=== PATIENT | female | born 1990 | race American Indian/Alaskan Native ===

== ENCOUNTER 2019-12-12 16:13 | Emergency (ER) | payer MEDICAID ==
[2019-12-12] MEDS: Sodium Chloride 0.9% 1,000 ML IV SCH (16:55)
--- NOTE | 2019-12-12 17:04 | EDM.PDOC ---
ED HPI GENERAL MEDICAL PROBLEM - General Chief Complaint: Syncope Stated Complaint: MEDICAL VIA NORTH Time Seen by Provider: 12/12/19 16:20 Source of Information: Reports: Patient History Limitations: Reports: No Limitations - History of Present Illness INITIAL COMMENTS - FREE TEXT/NARRATIVE: 29-year-old female who was seen at the clinic earlier today with some vague generalized abdominal pain, mostly lower abdominal pain but no nausea vomiting diarrhea or other symptoms was diagnosed with a UTI and given a shot of Rocephin. She will start oral Bactrim tomorrow. She went into the bank to withdraw some money, while in the bank she started getting very lightheaded and dizzy, went up to the social media job [employer] window and said I think him going to faint in the next and she remembers she was on the floor. She did not get hurt. Ambulance was called and she was transported to the emergency room. Completely stable in route, normal glucose. Still is complaining of some mild lower abdominal discomfort, no urinary symptoms. Onset: Sudden Associated Symptoms: Reports: Confusion (A period of confusion when she came around after regaining consciousness), Diaphoresis (Became very diaphoretic), Malaise, Other (Now she just feels very tired). 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 Denies: Fever, Chills HEENT: Reports: No Symptoms Respiratory: Denies: Shortness of Breath Cardiovascular: Denies: Chest Pain GI/Abdominal: Reports: Abdominal Pain. Denies: Constipation, Diarrhea, Nausea, Vomiting : Reports: No Symptoms, Other (Diagnosed with a UTI in the clinic) Skin: Reports: Diaphoresis (Resolved) - Physical Exam Exam: See Below Exam Limited By: No Limitations General Appearance: Alert, No Apparent Distress Eye Exam: Bilateral Eye: Normal Inspection Head Exam: Atraumatic Neck: Supple, Non-Tender Respiratory/Chest: Lungs Clear Cardiovascular: Regular Rate, Rhythm GI/Abdominal: Soft, Tender (Some mild diffuse tenderness to palpation but no focal rebound or guarding) Neuro Exam (Abbreviated): Alert, Oriented, No Motor/Sensory Deficits Psychiatric: Normal Affect, Normal Mood Skin Exam: Warm, Dry Course - Vital Signs Last Recorded V/S: Last Vital Signs Temp 97.3 F 12/12/19 16:13 Pulse 102 H 12/12/19 16:40 Resp 16 12/12/19 16:13 BP 103/69 12/12/19 16:40 Pulse Ox 98 12/12/19 16:13 - Orders/Labs/Meds Meds: Medications Discontinued Medications Generic Name Dose Route Start Last Admin Trade Name Luisq PRN Reason Stop Dose Admin Sodium Chloride 1,000 mls @ 1,000 mls/hr 12/12/19 16:45 12/12/19 16:55 Normal Saline IV 1,000 mls/hr ASDIRECTED ELIU Administration - Re-Assessments/Exams Free Text/Narrative Re-Assessment/Exam: 12/12/19 17:04 Reviewed the clinic records, she did have a very high specific gravity of her urine and some WBCs and a few bacteria. Patient will be hydrated with 1 L of normal saline. 12/12/19 17:56 After the fluid hydration, patient was asymptomatic and felt better. She was discharged and encouraged to continue her antibiotic as prescribed, concentrate on staying hydrated and increase diet and activity as tolerated. She can return for recheck if not improving satisfactorily. Departure - Departure Time of Disposition: 18:18 Disposition: Home, Self-Care 01 Clinical Impression: Syncope, vasovagal, Dehydration - Discharge Information Instructions: Syncope, [id number] Referrals: PCP,None [Primary Care Provider] - Forms: ED Department Discharge Care Plan Goals: Concentrate on staying hydrated with water, increase diet and activity as tolerated and start antibiotic tomorrow as prescribed. Return anytime if worsening or concerns. Sepsis Event Note - Evaluation Sepsis Screening Result: No Definite Risk - Focused Exam Vital Signs: Vital Signs Temp Pulse Resp BP Pulse Ox 12/12/19 16:40 102 H 103/69 12/12/19 16:13 97.3 F 90 16 92/54 L 98 Date Exam was Performed: 12/12/19 Time Exam was Performed: 18:51
== END 2019-12-12 18:18 | disposition home or self-care (01) ==
LOC: JP.ED 16:13
DX: E86.0 Dehydration (principal); F17.210 Nicotine dependence, cigarettes, uncomplicated
CPT/HCPCS: 96360; 99284; J7030

== ENCOUNTER 2020-01-16 06:28 | Emergency (ER) | payer MEDICAID ==
[2020-01-16] MEDS ORDERED: Ketorolac 60 MG/2 ML SDV IM ONE (06:50)
--- NOTE | 2020-01-16 07:46 | EDM.PDOC ---
ED HPI GENERAL MEDICAL PROBLEM - General Chief Complaint: Lower Extremity Injury/Pain Stated Complaint: MEDICAL VIA NORTH Time Seen by Provider: 01/16/20 07:36 Source of Information: Reports: Patient, Old Records (Dankoneal Mashashereen), RN Notes Reviewed History Limitations: Reports: No Limitations - History of Present Illness INITIAL COMMENTS - FREE TEXT/NARRATIVE: Miguel Ángel is a 29 year old female that presents to the ED via ambulance for left lower back pain with radiating pain down the left leg. She works at [employer] thursday thru and she does endorse muscle soreness during her shift last (4 days ago). On thursday am, Miguel Ángel awoke with the pain in her left lower back and radiating leg pain. this is the first time she's ever had the radiating pain down her leg- has a history of chronic back pain in which she received an epidural steriod injection between L5-S1 in 2018. At that time, she states she was unable to move her back, unable to sit down or lift anything. She has seen a chiropractor in the past without relief. Dr Larson is her PCP and she had not seen her for this back pain. Miguel Ángel states that she has had x- rays on her lumbar spine but no MRIs in the past. She has tried ibuprofen, ice, and heat over the weekend without any relief. No loss of bowel or bladder function or saddle numbness. Onset: Gradual Onset Date: 01/13/20 Duration: Day(s): (3-4) Location: Reports: Back Quality: Reports: Sharp (with certain movements), Other (numbness ) Severity: Moderate Improves with: Reports: Immobilization, Rest Worsens with: Reports: Movement Associated Symptoms: Reports: No Other Symptoms Treatments DOUGH CUTTER: Reports: Cold Therapy, Heat Therapy, NSAIDS left leg Pain Score (Numeric/FACES): 6 - Related Data Allergies Allergy/AdvReac Type Severity Reaction Status Date / Time No Known Allergies Allergy Verified 01/16/20 06:30 Home Meds: Home Meds Baclofen 10 mg PO TID PRN 7 Days #21 tablet 01/16/20 [Rx] Past Medical History HEENT History: Reports: Impaired Vision PSYCHIATRIC CNS History: Reports: Musculoskeletal History: Reports: Other (See Below) Other Musculoskeletal History: Left sciatic nerve pain, chronic Social & Family History - Tobacco Use Smoking Status *Q: Former Smoker Years of Tobacco use: 10 Packs/Tins Daily: 0.2 Used Tobacco, but Quit: Yes Month/Year Tobacco Last Used: january 2020 - Caffeine Use Caffeine Use: Reports: None - Recreational Drug Use Recreational Drug Use: No Review of Systems - Review of Systems Review Of Systems: See Below Constitutional: Reports: No Symptoms Eyes: Reports: No Symptoms Ears: Reports: No Symptoms, Previous Injury Nose: Reports: No Symptoms Mouth/Throat: Reports: No Symptoms Respiratory: Reports: No Symptoms Cardiovascular: Reports: No Symptoms GI/Abdominal: Reports: No Symptoms Genitourinary: Reports: No Symptoms Musculoskeletal: Reports: Back Pain (left lower), Leg Pain (left leg), Muscle Pain, Muscle Stiffness Skin: Reports: No Symptoms Neurological: Reports: No Symptoms Psychiatric: Reports: No Symptoms ED EXAM, GENERAL - Physical Exam Exam: See Below Exam Limited By: No Limitations General Appearance: Alert, Mild Distress, Obese Respiratory/Chest: No Respiratory Distress, Lungs Clear, Normal Breath Sounds, Chest Non-Tender Cardiovascular: Regular Rate, Rhythm, No Edema Peripheral Pulses: 2+: Dorsalis Pedis (L), Dorsalis Pedis (R) (Female) Exam: Deferred Rectal (Female) Exam: Deferred Back Exam: Normal Inspection, Decreased Range of Motion (unable to fully assess- ), Muscle Spasm (elicted with movement), Paraspinal Tenderness (left lumbar side), Vertebral Tenderness (left lower side). No: CVA Tenderness (R), CVA Tenderness (L) Extremities: Normal Inspection, No Pedal Edema, Normal Capillary Refill, Leg Pain (pain with palpation, state numbness along lateral leg to toes), Limited Range of Motion (to left leg- difficult to fully assess- possible positive straight leg lift test), Other (equal bilateral strength of dorsiflexion of great toe against resistance. ). No: Pedal Edema, Slow Capillary Refill, Joint Swelling, Redness Neurological: Alert, Oriented, Abnormal Gait (unable to bear full weight on left leg- toe touches. ), Abnormal Reflexes (DTR on left difficult to asses due to muscle tightness. ) Psychiatric: Normal Affect, Normal Mood Skin Exam: Warm, Dry, Intact Course - Vital Signs Last Recorded V/S: Last Vital Signs Temp 98.3 F 01/16/20 06:47 Pulse 83 01/16/20 06:47 Resp 17 01/16/20 06:47 BP 119/87 01/16/20 06:47 Pulse Ox 98 01/16/20 06:47 - Orders/Labs/Meds Labs: Laboratory Tests 01/16/20 Range/Units 08:27 Urine HCG, Qual Negative Meds: Medications Discontinued Medications Generic Name Dose Route Start Last Admin Trade Name Freq PRN Reason Stop Dose Admin Baclofen 10 mg 01/16/20 08:03 01/16/20 08:11 Lioresal PO 01/16/20 08:04 10 mg ONETIME ONE Administration Ketorolac Tromethamine 60 mg 01/16/20 06:50 01/16/20 07:12 Toradol IM 01/16/20 06:51 60 mg ONETIME ONE Administration Oxycodone/Acetaminophen 1 tab 01/16/20 08:03 01/16/20 08:13 Percocet 325-5 Mg PO 1 tab ONETIME PRN Administration Pain - Radiology Interpretation Free Text/Narrative:: MRI results reviewed with Patient. - Re-Assessments/Exams Free Text/Narrative Re-Assessment/Exam: 01/16/20 08:18 miguel ángel does state that she had difficulty with her lower back during her four years ago. Again she reiterates that she has not had any previous radiculopathy to her lower extremities. Departure - Departure Time of Disposition: 12:47 Disposition: Home, Self-Care 01 Condition: Fair Clinical Impression: Lumbar back pain with radiculopathy affecting left lower extremity, Lumbar disc herniation with radiculopathy - Discharge Information *PRESCRIPTION DRUG MONITORING PROGRAM REVIEWED*: No *COPY OF PRESCRIPTION DRUG MONITORING REPORT IN PATIENT THIEN: No Prescriptions: Baclofen 10 mg PO TID PRN 7 Days #21 tablet PRN Reason: muscle spasms Instructions: Herniated Disk, [id number] Referrals: PCP,None [Primary Care Provider] - Forms: ED Department Discharge, ED Return to Work/School Form Additional Instructions: Take 600 mg of Ibuprofen four times daily with food for the next week. Use the norco for break through pain and for sleep at night. You may also use Baclofen for muscle relaxation up to three times daily. An order for an epidural injection has been placed- they will call you to set up that appointment. It needs to go through prior auth for your insurance. [facility] should call you for an follow-up appointment with Elodia Larson early next week. Call or return to ED with any worsening of symptoms, loss of bowel or bladder function, or other concerns. Sepsis Event Note (ED) - Evaluation Sepsis Screening Result: No Definite Risk - Focused Exam Vital Signs: Vital Signs Temp Pulse Resp BP Pulse Ox 01/16/20 06:47 98.3 F 83 17 119/87 98 01/16/20 06:44 98.3 F 83 17 119/87 98 - Assessment/Plan Plan: Discharge home with baclofen 10 mg (#20) and [place] 5/325 (#10). Order for epidural steriod injection and to follow up with PCP next week. Pt agreeable to plan.
[2020-01-16] MEDS ORDERED: Acetaminophen/oxyCODONE 325-5 MG Tab PO PRN (08:03)
[2020-01-16] MEDS ORDERED: Baclofen 10 MG Tab PO ONE (08:03)
--- NOTE | 2020-01-16 12:06 | MR ---
Lumbar Spine Comp wo Cont CLINICAL HISTORY: Back and left leg pain COMPARISON: None TECHNIQUE: Multiple pulse sequences were obtained through the lumbar spine in the axial and sagittal planes without the IV infusion of contrast material. All images were obtained on a 1.5 Antionette unit. FINDINGS: Sagittal images show the lumbar vertebral configuration and signal be normal throughout. The conus medullaris and spinal nerve roots have a normal signal and configuration. Axial images show normal disc contour at L1-2. There is mild concentric disc bulging at L2-3 with some mild facet hypertrophy. There is concentric disc bulging at L3-4 with facet hypertrophy. There is some encroachment on the left lateral recess. There is a large left paracentral disc protrusion at L4-5. This is seen with moderate facet hypertrophy. This causes severe central canal stenosis as well as significant encroachment on the left lateral recess and left neural foramina. There is concentric disc bulging at L5-S1 with a left posterior annular tear and some mild central disc protrusion. IMPRESSION: Left paracentral disc protrusion at L4-5 encroaching on the thecal sac left lateral recess and neural foramina. 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
== END 2020-01-16 13:25 | disposition home or self-care (01) ==
LOC: JP.ED 06:28
DX: M51.16 Intervertebral disc disorders with radiculopathy, lumbar region (principal); Z87.891 Personal history of nicotine dependence
CPT/HCPCS: 72148; 81025; 96372; 99284; A9270; J1885; 99283

== ENCOUNTER 2020-09-23 16:10 | Emergency (ER) | payer MEDICAID ==
[2020-09-23] MEDS ORDERED: Ondansetron 4 MG Tab.DIS PO ONE (16:22)
[2020-09-23] MEDS ORDERED: Acetaminophen 500 MG Tab PO ONE (16:32)
--- NOTE | 2020-09-23 16:35 | EDM.PDOC ---
ED HPI GENERAL MEDICAL PROBLEM - General Chief Complaint: Gastrointestinal Problem Stated Complaint: MED VIA [facility] Time Seen by Provider: 09/23/20 16:15 Source of Information: Reports: Patient, Old Records, RN History Limitations: Reports: No Limitations - History of Present Illness INITIAL COMMENTS - FREE TEXT/NARRATIVE: 30 yo female presents via EMS from [place] with LLQ abdominal pain and vomiting. Sx's began about 3 days ago. Was dx with about 2 weeks ago. No blood in her emesis. No fever. No diarrhea. Pain is improved with lying on her L side with her legs pulled up to her chest. Has not yet been seen for this problem. No hx of any abdominal surgeries. No dysuria. Is not aware of a FHx of diverticular dz. Onset: Gradual Onset Date: 09/20/20 Duration: Day(s): (3), Getting Worse Location: Reports: Abdomen (LLQ) Quality: Reports: Ache Severity: Moderate Improves with: Reports: Other (See HPI) Worsens with: Reports: Other (other positions) Context: Reports: Other (See HPI) Associated Symptoms: Reports: Nausea/Vomiting. 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: , 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 Musculoskeletal History: Reports: Other (See Below) Other Musculoskeletal History: Left sciatic nerve pain, chronic Psychiatric History: Reports: Anxiety, Depression, PTSD Endocrine/Metabolic History: Reports: Obesity/BMI 30+ - Infectious Disease History Infectious Disease History: Reports: Chicken Pox - Past Surgical History Head Surgeries/Procedures: Reports: None HEENT Surgical History: Reports: None Endocrine Surgical History: Reports: None Musculoskeletal Surgical History: Reports: None Dermatological Surgical History: Reports: None Social & Family History - Tobacco Use Tobacco Use Status *Q: Former Tobacco User Used Tobacco, but Quit: Yes Month/Year Tobacco Last Used: 06/2020 Second Hand Smoke Exposure: No - Caffeine Use Caffeine Use: Reports: None - Recreational Drug Use Recreational Drug Use: No ED ROS GENERAL - Review of Systems Review Of Systems: See Below Constitutional: Reports: No Symptoms HEENT: Reports: No Symptoms Respiratory: Reports: No Symptoms Cardiovascular: Reports: No Symptoms Endocrine: Reports: No Symptoms GI/Abdominal: Reports: Abdominal Pain, Nausea, Vomiting. Denies: Black Stool, Bloody Stool, Constipation, Diarrhea, Distension, Hematemesis : Reports: Other (early first trimester IUP) Musculoskeletal: Reports: No Symptoms Skin: Reports: No Symptoms Neurological: Reports: No Symptoms ED EXAM, GI/ABD - Physical Exam Exam: See Below Exam Limited By: No Limitations General Appearance: Alert, WD/WN, No Apparent Distress, Obese Eyes: Bilateral: Normal Appearance Ears: Normal External Exam, Normal Canal, Hearing Grossly Normal Nose: Normal Inspection, No Blood Throat/Mouth: Normal Inspection, Normal Lips, Normal Oropharynx, Normal Voice, No Airway Compromise Head: Atraumatic, Normocephalic Neck: Normal Inspection Respiratory/Chest: No Respiratory Distress, Lungs Clear, Normal Breath Sounds, No Accessory Muscle Use Cardiovascular: Regular Rate, Rhythm, No Edema GI/Abdominal Exam: Normal Bowel Sounds, Soft, No Distention, Tender (mild LLQ tenderness), Other (obese). No: Non-Tender, Distended Back Exam: Normal Inspection. No: CVA Tenderness (R), CVA Tenderness (L) Extremities: Normal Inspection, Normal Range of Motion, Non-Tender, No Pedal Edema Neurological: Alert, Oriented, CN II-XII Intact, Normal Cognition, No Motor/Sensory Deficits Psychiatric: Normal Affect, Normal Mood Skin Exam: Warm, Dry, Intact, Normal Color, No Rash Course - Vital Signs Last Recorded V/S: Last Vital Signs Temp 36.6 C 09/23/20 16:18 Pulse 75 09/23/20 16:18 Resp 16 09/23/20 16:18 BP 122/67 09/23/20 16:18 Pulse Ox 97 09/23/20 16:18 Orthostatic Blood Pressure [ 114/75 Standing] Orthostatic Blood Pressure [ 118/70 Sitting] Orthostatic Blood Pressure [ 127/73 Supine] - Orders/Labs/Meds Orders: Active Orders 24 hr Category Date Time Status Orthostatic Vital Signs [RC] ASDIRECTED Care 09/23/20 16:22 Active Labs: Laboratory Tests 09/23/20 09/23/20 09/23/20 Range/Units 16:44 16:44 17:17 WBC 14.1 H (4.5-11.0) K/uL RBC 4.73 (3.30-5.50) M/uL Hgb 13.7 (12.0-15.0) g/dL Hct 41.9 (36.0-48.0) % MCV 89 (80-98) fL MCH 29 (27-31) pg MCHC 33 (32-36) % Plt Count 434 H (150-400) K/uL C-Reactive Protein 2.13 H (0.0-0.3) mg/dL HCG, Quant 30214 H (0-6) mIU/mL Urine Color Yellow (YELLOW) Urine Appearance Cloudy A (CLEAR) Urine pH 7.0 (5.0-8.0) Ur Specific [place] 1.025 (1.008-1.030) Urine Protein Negative (NEGATIVE) mg/dL Urine Glucose (UA) Negative (NEGATIVE) mg/dL Urine Ketones 40 H (NEGATIVE) mg/dL Urine Occult Blood Trace-intact H (NEGATIVE) Urine Nitrite Negative (NEGATIVE) Urine Bilirubin Negative (NEGATIVE) Urine Urobilinogen 1.0 (0.2-1.0) EU/dL Ur Leukocyte Esterase Negative (NEGATIVE) Urine RBC 0-5 (0-5) Urine WBC 0-5 (0-5) Ur Epithelial Cells Many Amorphous Sediment Few Urine Bacteria Many Urine Mucus Few Meds: Medications Discontinued Medications Generic Name Dose Route Start Last Admin Trade Name Freq PRN Reason Stop Dose Admin Acetaminophen 1,000 mg 09/23/20 16:32 09/23/20 16:35 Acetaminophen 500 Mg Tab PO 09/23/20 16:33 1,000 mg ONETIME ONE Administration Ondansetron HCl 4 mg 09/23/20 16:22 09/23/20 16:33 Ondansetron 4 Mg Tab.Dis PO 09/23/20 16:23 4 mg ONETIME ONE Administration - Re-Assessments/Exams Free Text/Narrative Re-Assessment/Exam: 09/23/20 17:44 Is feeling better after Tylenol and Zofran. Labs show she is still . Likely diverticulitis, not able to get CT due to preg. Will tx with metronidazole and f/u in the clinic later this week. Departure - Departure Time of Disposition: 17:55 Disposition: Home, Self-Care 01 Condition: Fair Clinical Impression: LLQ abdominal pain, First trimester Nausea and vomiting Qualifiers: Vomiting type: unspecified Vomiting Intractability: non-intractable Qualified Code(s): R11.2 - Nausea with vomiting, unspecified - Discharge Information *PRESCRIPTION DRUG MONITORING PROGRAM REVIEWED*: Not Applicable *COPY OF PRESCRIPTION DRUG MONITORING REPORT IN PATIENT THIEN: Not Applicable Instructions: Abdominal Pain, Adult, [id number] Referrals: PCP,None [Primary Care Provider] - Forms: ED Department Discharge Additional Instructions: Use Zofran every 6 hrs as needed for nausea control. Take acetaminophen up to 1000 mg every 6 hrs as needed for pain relief. Take the metronidazole every 8 hrs for infection(possibly diverticulitis). Recheck with your provider early this week, if not improving may need an OB ultrasound to make sure you don't have an ectopic . Return if a lot worse. Sepsis Event Note (ED) - Evaluation Sepsis Screening Result: No Definite Risk - Focused Exam Vital Signs: Vital Signs Temp Pulse Resp BP Pulse Ox 09/23/20 16:18 36.6 C 75 16 122/67 97 09/23/20 16:13 36.6 C 75 16 122/67 97 - My Orders Last 24 Hours: My Active Orders 09/23/20 16:22 Orthostatic Vital Signs [RC] ASDIRECTED - Assessment/Plan Last 24 Hours: My Active Orders 09/23/20 16:22 Orthostatic Vital Signs [RC] ASDIRECTED
== END 2020-09-23 17:57 | disposition home or self-care (01) ==
LOC: JP.ED 16:10
DX: O21.9 Vomiting of pregnancy, unspecified (principal); O99.891 Other specified diseases and conditions complicating pregnancy; R10.32 Left lower quadrant pain; O99.210 Obesity complicating pregnancy, unspecified trimester; Z87.891 Personal history of nicotine dependence; Z79.899 Other long term (current) drug therapy
CPT/HCPCS: 36415; 81001; 84702; 85027; 86140; 99283; 99284; A9270-GY

== ENCOUNTER 2020-10-16 21:09 | Emergency (ER) | payer MEDICAID ==
--- NOTE | 2020-10-16 21:29 | EDM.PDOC ---
ED HPI GENERAL MEDICAL PROBLEM - General Chief Complaint: Gastrointestinal Problem Stated Complaint: MEDICAL VIA [facility]TH Time Seen by Provider: 10/16/20 21:28 Source of Information: Reports: Patient History Limitations: Reports: No Limitations - History of Present Illness INITIAL COMMENTS - FREE TEXT/NARRATIVE: Presents emergency room today secondary to nausea vomiting she states has been 3 days in duration where she has been unable to eat or drink anything she did get rectal antiemetic she is unsure of what the medication was and she used it once today has slept most the day woke up this evening continued symptoms so she was recommended to come to the emergency room for IV fluid rehydration also reports a headache lightheaded and dizziness when she is in upright position denies any fevers chills she has had ongoing morning sickness since she found out she was EDC--Apr by [facility]--obesity Meds--PNV, unknown anti-emetic NKDA Tob--former Drug/EtOH--denies - Related Data Allergies Allergy/AdvReac Type Severity Reaction Status Date / Time No Known Allergies Allergy Verified 09/23/20 16:13 Home Meds: Home Meds Acetaminophen [Tylenol Extra Strength] 1,000 mg PO BID PRN 02/01/20 [History] Diclofenac Potassium [Cataflam] 50 mg PO TID 09/23/20 [History] Pnv No.95/Ferrous Fum/Folic AC [ Caplet] 1 tab PO DAILY 09/23/20 [History] Metoclopramide HCl 10 mg PO QID 10/16/20 [History] Past Medical History HEENT History: Reports: Impaired 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: , 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 Musculoskeletal History: Reports: Other (See Below) Other Musculoskeletal History: Left sciatic nerve pain, chronic Psychiatric History: Reports: Anxiety, Depression, PTSD Endocrine/Metabolic History: Reports: Obesity/BMI 30+ - Infectious Disease History Infectious Disease History: Reports: Chicken Pox - Past Surgical History Head Surgeries/Procedures: Reports: None HEENT Surgical History: Reports: None Endocrine Surgical History: Reports: None Musculoskeletal Surgical History: Reports: None Dermatological Surgical History: Reports: None Social & Family History - Tobacco Use Tobacco Use Status *Q: Never Tobacco User - Caffeine Use Caffeine Use: Reports: Tea - Recreational Drug Use Recreational Drug Use: No ED ROS GENERAL - Review of Systems Review Of Systems: See Below Constitutional: Reports: No Symptoms. Denies: Fever, Chills HEENT: Reports: No Symptoms Respiratory: Reports: No Symptoms Cardiovascular: Reports: No Symptoms Endocrine: Reports: No Symptoms GI/Abdominal: Reports: Nausea, Vomiting : Reports: No Symptoms Musculoskeletal: Reports: No Symptoms Skin: Reports: No Symptoms Neurological: Reports: Dizziness, Headache, Weakness Psychiatric: Reports: No Symptoms Hematologic/Lymphatic: Reports: No Symptoms Immunologic: Reports: No Symptoms ED EXAM, GI/ABD - Physical Exam Exam: See Below Exam Limited By: No Limitations General Appearance: Alert, Mild Distress Eyes: Bilateral: Normal Appearance, EOMI Ears: Normal External Exam Nose: Normal Inspection Throat/Mouth: Normal Inspection, Normal Lips, Normal Oropharynx Head: Atraumatic, Normocephalic Neck: Normal Inspection, Supple, Non-Tender, Full Range of Motion Respiratory/Chest: No Respiratory Distress, Lungs Clear, Normal Breath Sounds Cardiovascular: Normal Peripheral Pulses, Regular Rate, Rhythm, No Edema, No Murmur GI/Abdominal Exam: Normal Bowel Sounds, Soft, Tender (diffuse, no guarding/rebound), Other (morbidly obese). No: Guarding, Rebound (Female) Exam: Deferred Rectal (Female) Exam: Deferred Back Exam: Normal Inspection Extremities: Normal Inspection, Normal Range of Motion, No Pedal Edema, Normal Capillary Refill Neurological: Alert, Oriented, Normal Cognition, Normal Gait Psychiatric: Normal Affect, Normal Mood Skin Exam: Warm, Dry, Intact, Normal Color Course - Vital Signs Text/Narrative:: 2330--to the bathroom at this time states that she feels improved and is ready to go home has medications at home for nausea and vomiting and she should follow-up with her OB for further and ongoing management of related concerns Last Recorded V/S: Last Vital Signs Temp 97.9 F 10/16/20 21:11 Pulse 87 10/16/20 21:11 Resp 16 10/16/20 21:11 BP 130/76 10/16/20 21:11 Pulse Ox 95 10/16/20 21:11 - Orders/Labs/Meds Orders: Active Orders 24 hr Category Date Time Status Sodium Chloride 0.9% [Saline Flush] Med 10/16/20 21:42 Active 10 ml FLUSH ASDIRECTED PRN Saline Lock Insert [OM.PC] Routine Oth 10/16/20 21:42 Ordered Medication Orders Sodium Chloride (Sodium Chloride 0.9% 10 Ml Syringe) 10 ml FLUSH ASDIRECTED PRN PRN Reason: Keep Vein Open Last Admin: 10/16/20 21:55 Dose: 10 ml Documented by: MARELY Labs: Laboratory Tests 10/16/20 10/16/20 Range/Units 21:52 21:52 WBC 14.3 H (4.5-11.0) K/uL RBC 4.57 (3.30-5.50) M/uL Hgb 13.6 (12.0-15.0) g/dL Hct 40.4 (36.0-48.0) % MCV 88 (80-98) fL MCH 30 (27-31) pg MCHC 34 (32-36) % Plt Count 383 (150-400) K/uL Neut % (Auto) 84 H (36-66) % Lymph % (Auto) 10 L (24-44) % [place] % (Auto) 5 (2-6) % Eos % (Auto) 1 L (2-4) % Baso % (Auto) 0 (0-1) % Sodium 140 (140-148) mmol/L Potassium 4.1 (3.6-5.2) mmol/L Chloride 102 (100-108) mmol/L Carbon Dioxide 25 (21-32) mmol/L Anion Gap 13.4 (5.0-14.0) mmol/L BUN 6 L (7-18) mg/dL Creatinine 0.7 (0.6-1.0) mg/dL Est Cr Clr Drug Dosing 128.23 mL/min Estimated GFR (MDRD) > 60 (>60) Glucose 104 (74-106) mg/dL Calcium 8.9 (8.5-10.1) mg/dL Meds: Medications Generic Name Dose Route Start Last Admin Trade Name Freq PRN Reason Stop Dose Admin Sodium Chloride 10 ml 10/16/20 21:42 10/16/20 21:55 Sodium Chloride 0.9% 10 Ml Syringe FLUSH 10 ml ASDIRECTED PRN Administration Keep Vein Open Discontinued Medications Generic Name Dose Route Start Last Admin Trade Name Freq PRN Reason Stop Dose Admin Famotidine 20 mg 10/16/20 21:42 10/16/20 21:55 Famotidine 20 Mg/2 Ml Sdv IVPUSH 10/16/20 21:43 20 mg ONETIME ONE Administration Sodium Chloride 1,000 mls @ 999 mls/hr 10/16/20 21:42 10/16/20 21:55 Normal Saline IV 10/16/20 22:42 999 mls/hr .BOLUS ONE Administration Ondansetron HCl 4 mg 10/16/20 21:42 10/16/20 21:55 Ondansetron 4 Mg/2 Ml Sdv IVPUSH 10/16/20 21:43 4 mg ONETIME ONE Administration Departure - Departure Time of Disposition: 23:34 Disposition: Home, Self-Care 01 Condition: Good Clinical Impression: Nausea and vomiting of , antepartum, Dehydration during , Obesity - Discharge Information *PRESCRIPTION DRUG MONITORING PROGRAM REVIEWED*: Not Applicable *COPY OF PRESCRIPTION DRUG MONITORING REPORT IN PATIENT THIEN: Not Applicable Instructions: Hyperemesis Gravidarum Referrals: PCP,None [Primary Care Provider] - Forms: ED Department Discharge Additional Instructions: No medications were prescribed tonight as you reported that you had medications at home for your nausea and vomiting Ensure that you are drinking plenty of fluids staying well-hydrated With your OB for any further related concerns Sepsis Event Note (ED) - Evaluation Sepsis Screening Result: No Definite Risk - Focused Exam Vital Signs: Vital Signs Temp Pulse Resp BP Pulse Ox 10/16/20 21:11 97.9 F 87 16 130/76 95 - My Orders Last 24 Hours: My Active Orders 10/16/20 21:42 Sodium Chloride 0.9% [Saline Flush] 10 ml FLUSH ASDIRECTED PRN Saline Lock Insert [OM.PC] Routine - Assessment/Plan Last 24 Hours: My Active Orders 10/16/20 21:42 Sodium Chloride 0.9% [Saline Flush] 10 ml FLUSH ASDIRECTED PRN Saline Lock Insert [OM.PC] Routine
[2020-10-16] MEDS ORDERED: Ondansetron 4 MG/2 ML SDV IVPUSH ONE (21:42)
[2020-10-16] MEDS ORDERED: Sodium Chloride 0.9% 10 ML Syringe FLUSH PRN (21:42)
[2020-10-16] MEDS ORDERED: Sodium Chloride 0.9% 1,000 ML IV ONE (21:42)
[2020-10-16] MEDS ORDERED: Famotidine 20 MG/2 ML SDV IVPUSH ONE (21:42)
== END 2020-10-16 23:55 | disposition home or self-care (01) ==
LOC: JP.ED 21:09
DX: O99.281 Endocrine, nutritional and metabolic diseases complicating pregnancy, first trimester (principal); E86.0 Dehydration; O21.9 Vomiting of pregnancy, unspecified; O99.211 Obesity complicating pregnancy, first trimester; E66.9 Obesity, unspecified; Z87.891 Personal history of nicotine dependence
CPT/HCPCS: 36415; 80048; 85025; 96361; 96374; 96375; 99284; J2405; J3490; J7030

== ENCOUNTER 2020-12-03 08:15 | Emergency (ER) | payer MEDICAID ==
[2020-12-03] MEDS ORDERED: Alum Hydrox/Mag Hydrox/Simeth 15 ML, Lidocaine 2% 15 ML PO ONE ×2 (09:04)
--- NOTE | 2020-12-03 09:08 | EDM.PDOC ---
ED HPI GENERAL MEDICAL PROBLEM - General Chief Complaint: Abdominal Pain Stated Complaint: PAINS 18 WEEKS PG Time Seen by Provider: 12/03/20 08:25 Source of Information: Reports: Patient History Limitations: Reports: No Limitations - History of Present Illness INITIAL COMMENTS - FREE TEXT/NARRATIVE: This a 30-year-old female, history of obesity, currently 18 weeks who presents with concerns of epigastric abdominal pain. She reports symptoms have been ongoing for about 2 days. There is pain around her epigastrium that is worse when moving around, better when she lays still in bed. She has had associated diarrhea. She has no nausea or vomiting. No fevers. No vaginal bleeding. No history of similar symptoms. No prior abdominal surgeries. 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 Musculoskeletal History: Reports: Other (See Below) Other Musculoskeletal History: Left sciatic nerve pain, chronic Psychiatric History: Reports: Anxiety, Depression, PTSD Endocrine/Metabolic History: Reports: Obesity/BMI 30+ - Infectious Disease History Infectious Disease History: Reports: Chicken Pox - Past Surgical History Head Surgeries/Procedures: Reports: None HEENT Surgical History: Reports: None Endocrine Surgical History: Reports: None Musculoskeletal Surgical History: Reports: None Dermatological Surgical History: Reports: None Social & Family History - Tobacco Use Tobacco Use Status *Q: Never Tobacco User - Caffeine Use Caffeine Use: Reports: Tea ED ROS GENERAL - Review of Systems Review Of Systems: See Below Constitutional: Reports: No Symptoms HEENT: Reports: No Symptoms Respiratory: Reports: No Symptoms Cardiovascular: Reports: No Symptoms Endocrine: Reports: No Symptoms GI/Abdominal: Reports: Abdominal Pain, Diarrhea : Reports: No Symptoms Musculoskeletal: Reports: No Symptoms Skin: Reports: No Symptoms Neurological: Reports: No Symptoms Psychiatric: Reports: No Symptoms Hematologic/Lymphatic: Reports: No Symptoms Immunologic: Reports: No Symptoms ED EXAM, GI/ABD - Physical Exam Exam: See Below Exam Limited By: No Limitations General Appearance: Alert, WD/WN, No Apparent Distress Ears: Normal External Exam Nose: Normal Inspection Throat/Mouth: Normal Inspection Head: Atraumatic, Normocephalic Respiratory/Chest: Lungs Clear Cardiovascular: Regular Rate, Rhythm GI/Abdominal Exam: Soft, No Distention, Tender (Mild epigastric tenderness) (Female) Exam: Deferred Back Exam: Normal Inspection Extremities: Normal Inspection Neurological: Alert, Oriented, CN II-XII Intact Psychiatric: Normal Affect, Normal Mood Skin Exam: Warm, Dry Course - Vital Signs Last Recorded V/S: Last Vital Signs Temp 36.4 C 12/03/20 08:44 Pulse 94 12/03/20 08:44 Resp 18 12/03/20 08:44 BP 126/79 12/03/20 08:44 Pulse Ox 98 12/03/20 08:44 - Orders/Labs/Meds Labs: Laboratory Tests 12/03/20 12/03/20 Range/Units 09:10 09:10 WBC 13.1 H (4.5-11.0) K/uL RBC 3.88 (3.30-5.50) M/uL Hgb 11.3 L D (12.0-15.0) g/dL Hct 35.3 L (36.0-48.0) % MCV 91 (80-98) fL MCH 29 (27-31) pg MCHC 32 (32-36) % Plt Count 330 (150-400) K/uL Sodium 139 L (140-148) mmol/L Potassium 3.9 (3.6-5.2) mmol/L Chloride 104 (100-108) mmol/L Carbon Dioxide 26 (21-32) mmol/L Anion Gap 12.9 (5.0-14.0) mmol/L BUN 10 D (7-18) mg/dL Creatinine 0.6 (0.6-1.0) mg/dL Est Cr Clr Drug Dosing 154.63 mL/min Estimated GFR (MDRD) > 60 (>60) Glucose 141 H (74-106) mg/dL Calcium 8.1 L (8.5-10.1) mg/dL Total Bilirubin 0.1 L (0.2-1.0) mg/dL AST 17 (15-37) U/L ALT 38 (12-78) U/L Alkaline Phosphatase 99 (46-116) U/L Total Protein 6.0 L (6.4-8.2) g/dL Albumin 2.1 L (3.4-5.0) g/dL Globulin 3.9 H (2.3-3.5) g/dL Albumin/Globulin Ratio 0.5 L (1.2-2.2) Lipase 134 (73-393) U/L Meds: Medications Discontinued Medications Generic Name Dose Route Start Last Admin Trade Name Freq PRN Reason Stop Dose Admin Al Hydroxide/Mg Hydroxide 15 0 ml 12/03/20 09:04 12/03/20 09:11 ml/ Lidocaine HCl 15 ml PO 12/03/20 09:05 15 ml ONETIME ONE Administration - Re-Assessments/Exams Free Text/Narrative Re-Assessment/Exam: 30-year-old female, currently 18 weeks , presents with concerns of epigastric discomfort. On exam is normal vitals, some epigastric tenderness to palpation, overall reassuring physical exam. heart tones obtained and are reassuring around 155. Screening labs were obtained and reassuring (WBC down from baseline). Good symptom relief with GI cocktail. Suspect her symptoms are due to GERD during her . With a reassuring exam, vitals, labs, do not think we need to do any imaging for emergent intra-abdominal or obstetrical disease. I have written her a prescription for as needed sucralfate. She has follow-up planned with her WOOD BLOCK ARTIST. 12/03/20 10:24 Departure - Departure Time of Disposition: 10:25 Disposition: Home, Self-Care 01 Clinical Impression: GERD (gastroesophageal reflux disease) Qualifiers: Esophagitis presence: esophagitis presence not specified Qualified Code(s): K21.9 - Gastro-esophageal reflux disease without esophagitis - Discharge Information Prescriptions: Sucralfate [Carafate] 1 gm PO TIDAC PRN #15 cup PRN Reason: Abdominal Pain Instructions: Gastroesophageal Reflux Disease, Adult, [id number] Referrals: PCP,None [Primary Care Provider] - Forms: ED Department Discharge Additional Instructions: We suspect your symptoms are due to heartburn. We have written you a prescription for a medicine called sucralfate that you can take as needed for this. If you feel your pain is significantly worsening, you develop fevers or chills, or other symptoms are concerning to you please see a physician promptly. Be sure to make your follow-up appointment with your WOOD BLOCK ARTIST. Thank you for trusting us to care for you today. Sepsis Event Note (ED) - Evaluation Sepsis Screening Result: No Definite Risk - Focused Exam Vital Signs: Vital Signs Temp Pulse Resp BP Pulse Ox 12/03/20 08:44 36.4 C 94 18 126/79 98 12/03/20 08:40 36.4 C 94 18 126/79 98
== END 2020-12-03 10:39 | disposition home or self-care (01) ==
LOC: JP.ED 08:15
DX: O99.612 Diseases of the digestive system complicating pregnancy, second trimester (principal); O99.212 Obesity complicating pregnancy, second trimester; K21.9 Gastro-esophageal reflux disease without esophagitis; E66.9 Obesity, unspecified; Z3A.18 18 weeks gestation of pregnancy
CPT/HCPCS: 36415; 80053; 83690; 85027; 99284; A9270

== ENCOUNTER 2021-02-16 08:17 | Emergency (ER) | payer MEDICAID ==
--- NOTE | 2021-02-16 08:27 | EDM.PDOC ---
<Chantell Quiroz Lobo - Last Filed: 02/16/21 11:15> ED HPI GENERAL MEDICAL PROBLEM - General Chief Complaint: Cardiovascular Problem Stated Complaint: HIGH HEART RATE Time Seen by Provider: 02/16/21 08:17 - Related Data Allergies Allergy/AdvReac Type Severity Reaction Status Date / Time No Known Allergies Allergy Verified 12/03/20 08:43 Home Meds: Home Meds Acetaminophen [Tylenol Extra Strength] 1,000 mg PO BID PRN 02/01/20 [History] Pnv No.95/Ferrous Fum/Folic AC [ Caplet] 1 tab PO DAILY 09/23/20 [History] Metoclopramide HCl 10 mg PO QID 10/16/20 [History] Sucralfate [Carafate] 1 gm PO TIDAC PRN #15 cup 12/03/20 [Rx] Course - Re-Assessments/Exams Free Text/Narrative Re-Assessment/Exam: 02/16/21 10:53 After the OB consultation here in the emergency room, a diagnosis of dehydration with nausea and vomiting was made. Patient will be discharged with 5 doses of Zofran, encouraged to stay hydrated, and return if worsening or concerns. Departure - Departure Disposition: Home, Self-Care 01 Clinical Impression: Dehydration during Nausea & vomiting Qualifiers: Vomiting type: unspecified Vomiting Intractability: non-intractable Qualified Code(s): R11.2 - Nausea with vomiting, unspecified Instructions: Dehydration, Adult, [id number] Referrals: PCP,None [Primary Care Provider] - Forms: ED Department Discharge Care Plan Goals: Use Zofran under your tongue every 8 hours as needed for persistent nausea or vomiting, concentrate on hydration and increase activity as tolerated. Follow- up as discussed with the OB consultation. Return anytime if worsening or concerns. - Problem List & Annotations (1) Normal intrauterine on ultrasound in second trimester SNOMED Code(s): 09038568, 31192242, 316701112 Code(s): Z34.92 - ENCNTR FOR SUPRVSN OF NORMAL PREG, UNSP, SECOND TRIMESTER Status: Acute (2) Dehydration SNOMED Code(s): 12846946 Code(s): E86.0 - DEHYDRATION Status: Acute (3) Dehydration during SNOMED Code(s): 41074207 Code(s): O26.899 - OTH RELATED CONDITIONS, UNSPECIFIED TRIMESTER; E86.0 - DEHYDRATION Status: Acute <LuchoMichael Jorje - Last Filed: 02/16/21 12:08> ED HPI GENERAL MEDICAL PROBLEM - General Source of Information: Reports: Patient, EMS History Limitations: Reports: No Limitations - History of Present Illness INITIAL COMMENTS - FREE TEXT/NARRATIVE: 30-year-old female was brought in by ambulance with lower abdominal pain, she is 30 weeks gestation and was initially taken up to the OB floor but was found to have a "pulse of 220-240". Baby was active she was afebrile but she was then sent down to the emergency room for further evaluation. She also seems tired and sedated. On arrival to the emergency room she was placed on a monitor she had a normal blood pressure and was in a normal sinus rhythm with a pulse of 102-107. There does not appear to be any paper documentation of the rhythm she was in upstairs. She has no chest pain or shortness of breath but is still complaining of some vague lower abdominal discomfort. No vaginal bleeding. She has not felt right the last 2 days, yesterday while traveling she had to kiln puller and had emesis, lightheaded and almost passed out. Since that time she has had intermittent nausea and vomiting, difficulty keeping fluids down but no fevers or chills. Onset: Unknown/Unsure Associated Symptoms: Reports: Malaise, Weakness. 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 Musculoskeletal History: Reports: Other (See Below) Other Musculoskeletal History: Left sciatic nerve pain, chronic Psychiatric History: Reports: Anxiety, Depression, PTSD Endocrine/Metabolic History: Reports: Obesity/BMI 30+ - Infectious Disease History Infectious Disease History: Reports: Chicken Pox - Past Surgical History Head Surgeries/Procedures: Reports: None HEENT Surgical History: Reports: None Endocrine Surgical History: Reports: None Musculoskeletal Surgical History: Reports: None Dermatological Surgical History: Reports: None Social & Family History - Caffeine Use Caffeine Use: Reports: Tea ED ROS GENERAL - Review of Systems Review Of Systems: See Below Constitutional: Reports: Malaise. Denies: Fever, Chills HEENT: Reports: Vision Change (Yesterday she was seeing "spots") Respiratory: Reports: Shortness of Breath (Mild intermittent shortness of breath). Denies: Cough Cardiovascular: Reports: Palpitations, Other (Several near syncopal episodes in the last couple of days). Denies: Chest Pain GI/Abdominal: Reports: Abdominal Pain (Especially lower abdomen), Nausea, Vomiting. Denies: Diarrhea : Reports: No Symptoms Skin: Reports: No Symptoms Neurological: Reports: Headache (Chronic headaches, she has had a headache for the past couple of days) ED EXAM, GENERAL - Physical Exam Exam: See Below Exam Limited By: No Limitations General Appearance: Alert, No Apparent Distress Eye Exam: Bilateral Eye: Normal Inspection Head: Atraumatic Respiratory/Chest: No Respiratory Distress, Lungs Clear Cardiovascular: Regular Rate, Rhythm, Tachycardia (Mild tachycardia is present) GI/Abdominal: Normal Bowel Sounds, Soft, Tender (She does react with some tenderness to palpation diffusely to the abdomen, somewhat more pronounced in the lower abdomen but no focal rebound or guarding) Extremities: Normal Inspection. No: Pedal Edema Neurological: Alert, Oriented, Slow to Respond Psychiatric: Depressed Mood, Flat Affect Skin Exam: Warm, Dry Course - Vital Signs Last Recorded V/S: Last Vital Signs Temp 98.1 F 02/16/21 08:40 Pulse 100 02/16/21 10:48 Resp 18 02/16/21 09:51 BP 112/70 02/16/21 10:48 Pulse Ox 98 02/16/21 10:48 - Orders/Labs/Meds Labs: Laboratory Tests 02/16/21 02/16/21 02/16/21 Range/Units 08:22 08:32 08:32 WBC 16.6 H (4.5-11.0) K/uL RBC 3.99 (3.30-5.50) M/uL Hgb 11.5 L (12.0-15.0) g/dL Hct 34.4 L (36.0-48.0) % MCV 86 (80-98) fL MCH 29 (27-31) pg MCHC 33 (32-36) % Plt Count 330 (150-400) K/uL Neut % (Auto) 85.7 H (36-66) % Lymph % (Auto) 8.4 L (24-44) % [place] % (Auto) 5.2 (2-6) % Eos % (Auto) 0.6 L (2-4) % Baso % (Auto) 0.1 (0-1) % Sodium 137 L (140-148) mmol/L Potassium 3.8 (3.6-5.2) mmol/L Chloride 101 (100-108) mmol/L Carbon Dioxide 24 (21-32) mmol/L Anion Gap 15.8 H (5.0-14.0) mmol/L BUN 7 (7-18) mg/dL Creatinine 0.7 (0.6-1.0) mg/dL Est Cr Clr Drug Dosing 128.23 mL/min Estimated GFR (MDRD) > 60 (>60) Glucose 119 H (74-106) mg/dL Calcium 8.2 L (8.5-10.1) mg/dL Total Bilirubin 0.4 D (0.2-1.0) mg/dL AST 14 L (15-37) U/L ALT 17 (12-78) U/L Alkaline Phosphatase 109 (46-116) U/L Total Protein 5.9 L (6.4-8.2) g/dL Albumin 2.0 L (3.4-5.0) g/dL Globulin 3.9 H (2.3-3.5) g/dL Albumin/Globulin Ratio 0.5 L (1.2-2.2) Urine Opiates Screen Negative (NEGATIVE) Ur Oxycodone Screen Negative (NEGATIVE) Urine Methadone Screen Negative (NEGATIVE) Ur Propoxyphene Screen Negative (NEGATIVE) Acetaminophen 0.0 L (10.0-30.0) ug/mL Ur Barbiturates Screen Negative (NEGATIVE) Ur Tricyclics Screen Negative (NEGATIVE) Ur Phencyclidine Scrn Negative (NEGATIVE) Ur Amphetamine Screen Negative (NEGATIVE) U Methamphetamines Scrn Negative (NEGATIVE) Urine MDMA Screen Negative (NEGATIVE) U Benzodiazepines Scrn Negative (NEGATIVE) U Cocaine Metab Screen Negative (NEGATIVE) U Marijuana (THC) Screen Presumptive positive H (NEGATIVE) SARS CoV-2 RNA Rapid [place] 02/16/21 Range/Units 08:37 WBC (4.5-11.0) K/uL RBC (3.30-5.50) M/uL Hgb (12.0-15.0) g/dL Hct (36.0-48.0) % MCV (80-98) fL MCH (27-31) pg MCHC (32-36) % Plt Count (150-400) K/uL Neut % (Auto) (36-66) % Lymph % (Auto) (24-44) % [place] % (Auto) (2-6) % Eos % (Auto) (2-4) % Baso % (Auto) (0-1) % Sodium (140-148) mmol/L Potassium (3.6-5.2) mmol/L Chloride (100-108) mmol/L Carbon Dioxide (21-32) mmol/L Anion Gap (5.0-14.0) mmol/L BUN (7-18) mg/dL Creatinine (0.6-1.0) mg/dL Est Cr Clr Drug Dosing mL/min Estimated GFR (MDRD) (>60) Glucose (74-106) mg/dL Calcium (8.5-10.1) mg/dL Total Bilirubin (0.2-1.0) mg/dL AST (15-37) U/L ALT (12-78) U/L Alkaline Phosphatase (46-116) U/L Total Protein (6.4-8.2) g/dL Albumin (3.4-5.0) g/dL Globulin (2.3-3.5) g/dL Albumin/Globulin Ratio (1.2-2.2) Urine Opiates Screen (NEGATIVE) Ur Oxycodone Screen (NEGATIVE) Urine Methadone Screen (NEGATIVE) Ur Propoxyphene Screen (NEGATIVE) Acetaminophen (10.0-30.0) ug/mL Ur Barbiturates Screen (NEGATIVE) Ur Tricyclics Screen (NEGATIVE) Ur Phencyclidine Scrn (NEGATIVE) Ur Amphetamine Screen (NEGATIVE) U Methamphetamines Scrn (NEGATIVE) Urine MDMA Screen (NEGATIVE) U Benzodiazepines Scrn (NEGATIVE) U Cocaine Metab Screen (NEGATIVE) U Marijuana (THC) Screen (NEGATIVE) SARS CoV-2 RNA Rapid [place] Negative Meds: Medications Discontinued Medications Generic Name Dose Route Start Last Admin Trade Name Freq PRN Reason Stop Dose Admin Sodium Chloride 1,000 mls @ 1,000 mls/hr 02/16/21 08:30 02/16/21 08:30 Normal Saline IV 1,000 mls/hr ASDIRECTED ELIU Administration Sodium Chloride 1,000 mls @ 1,000 mls/hr 08/14/21 09:30 02/16/21 09:33 Normal Saline IV 1,000 mls/hr ASDIRECTED ELIU Administration - Re-Assessments/Exams Free Text/Narrative Re-Assessment/Exam: 02/16/21 08:33 CBC, CMP, urine drug screen and Covid test were obtained. Patient will be bolused with 1 L of fluid. 02/16/21 09:30 White count is moderately elevated, CMP is relatively reassuring and urine drug screen is negative other than marijuana. Covid test was negative. UA did confirm dehydration with fairly high ketone concentration. Patient was given 2 full liters of normal saline and monitor, pulse slowly normalized and she felt better. Care was turned back over to SENIOR BUSINESS DEVELOPMENT MANAGER. 02/16/21 12:06 Above entry under Chantell Quiroz was actually entered by myself accidentally on her chart. She was comfortable with the patient being discharged, encouraging hydration and following up as scheduled. Departure - Departure Time of Disposition: 11:08 Sepsis Event Note (ED) - Focused Exam Vital Signs: Vital Signs Temp Pulse Resp BP Pulse Ox 02/16/21 10:48 100 112/70 98 02/16/21 09:51 101 H 18 102/57 L 98 02/16/21 08:40 98.1 F 105 H 16 94/46 L 97 02/16/21 08:24 98.1 F 105 H 17 117/79 97
[2021-02-16] MEDS ORDERED: Sodium Chloride 0.9% 1,000 ML IV SCH ×2 (08:30→09:30)
--- NOTE | 2021-02-16 10:50 | PCM.PN ---
- General Info Date of Service: 02/16/21 Functional Status: Reports: Pain Controlled (feeling better with 2 liters of fluids) - Review of Systems General: Reports: Fatigue. Denies: Fever HEENT: Reports: Rhinitis Pulmonary: Reports: No Symptoms Cardiovascular: Reports: No Symptoms Gastrointestinal: Reports: Other (lower belly pain has resolved) Genitourinary: Reports: No Symptoms Musculoskeletal: Reports: No Symptoms Skin: Reports: No Symptoms Neurological: Reports: No Symptoms Psychiatric: Reports: No Symptoms - Patient Data Vitals - Most Recent: Last Vital Signs Temp 98.1 F 02/16/21 08:40 Pulse 101 H 02/16/21 09:51 Resp 18 02/16/21 09:51 BP 102/57 L 02/16/21 09:51 Pulse Ox 98 02/16/21 09:51 Weight - Most Recent: 311 lb Lab Results Last 24 Hours: Laboratory Results - last 24 hr 02/16/21 02/16/21 02/16/21 Range/Units 08:22 08:32 08:32 WBC 16.6 H (4.5-11.0) K/uL RBC 3.99 (3.30-5.50) M/uL Hgb 11.5 L (12.0-15.0) g/dL Hct 34.4 L (36.0-48.0) % MCV 86 (80-98) fL MCH 29 (27-31) pg MCHC 33 (32-36) % Plt Count 330 (150-400) K/uL Neut % (Auto) 85.7 H (36-66) % Lymph % (Auto) 8.4 L (24-44) % [place] % (Auto) 5.2 (2-6) % Eos % (Auto) 0.6 L (2-4) % Baso % (Auto) 0.1 (0-1) % Sodium 137 L (140-148) mmol/L Potassium 3.8 (3.6-5.2) mmol/L Chloride 101 (100-108) mmol/L Carbon Dioxide 24 (21-32) mmol/L Anion Gap 15.8 H (5.0-14.0) mmol/L BUN 7 (7-18) mg/dL Creatinine 0.7 (0.6-1.0) mg/dL Est Cr Clr Drug Dosing 128.23 mL/min Estimated GFR (MDRD) > 60 (>60) Glucose 119 H (74-106) mg/dL Calcium 8.2 L (8.5-10.1) mg/dL Total Bilirubin 0.4 D (0.2-1.0) mg/dL AST 14 L (15-37) U/L ALT 17 (12-78) U/L Alkaline Phosphatase 109 (46-116) U/L Total Protein 5.9 L (6.4-8.2) g/dL Albumin 2.0 L (3.4-5.0) g/dL Globulin 3.9 H (2.3-3.5) g/dL Albumin/Globulin Ratio 0.5 L (1.2-2.2) Urine Opiates Screen Negative (NEGATIVE) Ur Oxycodone Screen Negative (NEGATIVE) Urine Methadone Screen Negative (NEGATIVE) Ur Propoxyphene Screen Negative (NEGATIVE) Acetaminophen 0.0 L (10.0-30.0) ug/mL Ur Barbiturates Screen Negative (NEGATIVE) Ur Tricyclics Screen Negative (NEGATIVE) Ur Phencyclidine Scrn Negative (NEGATIVE) Ur Amphetamine Screen Negative (NEGATIVE) U Methamphetamines Scrn Negative (NEGATIVE) Urine MDMA Screen Negative (NEGATIVE) U Benzodiazepines Scrn Negative (NEGATIVE) U Cocaine Metab Screen Negative (NEGATIVE) U Marijuana (THC) Screen Presumptive positive H (NEGATIVE) SARS CoV-2 RNA Rapid [place] 02/16/21 Range/Units 08:37 WBC (4.5-11.0) K/uL RBC (3.30-5.50) M/uL Hgb (12.0-15.0) g/dL Hct (36.0-48.0) % MCV (80-98) fL MCH (27-31) pg MCHC (32-36) % Plt Count (150-400) K/uL Neut % (Auto) (36-66) % Lymph % (Auto) (24-44) % [place] % (Auto) (2-6) % Eos % (Auto) (2-4) % Baso % (Auto) (0-1) % Sodium (140-148) mmol/L Potassium (3.6-5.2) mmol/L Chloride (100-108) mmol/L Carbon Dioxide (21-32) mmol/L Anion Gap (5.0-14.0) mmol/L BUN (7-18) mg/dL Creatinine (0.6-1.0) mg/dL Est Cr Clr Drug Dosing mL/min Estimated GFR (MDRD) (>60) Glucose (74-106) mg/dL Calcium (8.5-10.1) mg/dL Total Bilirubin (0.2-1.0) mg/dL AST (15-37) U/L ALT (12-78) U/L Alkaline Phosphatase (46-116) U/L Total Protein (6.4-8.2) g/dL Albumin (3.4-5.0) g/dL Globulin (2.3-3.5) g/dL Albumin/Globulin Ratio (1.2-2.2) Urine Opiates Screen (NEGATIVE) Ur Oxycodone Screen (NEGATIVE) Urine Methadone Screen (NEGATIVE) Ur Propoxyphene Screen (NEGATIVE) Acetaminophen (10.0-30.0) ug/mL Ur Barbiturates Screen (NEGATIVE) Ur Tricyclics Screen (NEGATIVE) Ur Phencyclidine Scrn (NEGATIVE) Ur Amphetamine Screen (NEGATIVE) U Methamphetamines Scrn (NEGATIVE) Urine MDMA Screen (NEGATIVE) U Benzodiazepines Scrn (NEGATIVE) U Cocaine Metab Screen (NEGATIVE) U Marijuana (THC) Screen (NEGATIVE) SARS CoV-2 RNA Rapid [place] Negative Med Orders - Current: Current Medications Sodium Chloride (Normal Saline) 1,000 mls @ 1,000 mls/hr IV ASDIRECTED [facility], [facility] Last Admin: 02/16/21 08:30 Dose: 1,000 mls/hr Documented by: Sodium Chloride (Normal Saline) 1,000 mls @ 1,000 mls/hr IV ASDIRECTED [facility], [facility] Last Admin: 02/16/21 09:33 Dose: 1,000 mls/hr Documented by: - Exam General: Alert, Oriented, Cooperative HEENT: Pupils Equal, Mucous Membr. Moist/[place] Lungs: Normal Respiratory Effort Cardiovascular: Regular Rhythm, Other (rate between 108-114) Back Exam: Full Range of Motion Extremities: No Pedal Edema, Normal Capillary Refill Skin: Warm, Dry Psy/Mental Status: Alert, Normal Affect, Normal Mood - Patient Data Lab Results Last 24 hrs: Laboratory Results - last 24 hr 02/16/21 02/16/21 02/16/21 Range/Units 08:22 08:32 08:32 WBC 16.6 H (4.5-11.0) K/uL RBC 3.99 (3.30-5.50) M/uL Hgb 11.5 L (12.0-15.0) g/dL Hct 34.4 L (36.0-48.0) % MCV 86 (80-98) fL MCH 29 (27-31) pg MCHC 33 (32-36) % Plt Count 330 (150-400) K/uL Neut % (Auto) 85.7 H (36-66) % Lymph % (Auto) 8.4 L (24-44) % [place] % (Auto) 5.2 (2-6) % Eos % (Auto) 0.6 L (2-4) % Baso % (Auto) 0.1 (0-1) % Sodium 137 L (140-148) mmol/L Potassium 3.8 (3.6-5.2) mmol/L Chloride 101 (100-108) mmol/L Carbon Dioxide 24 (21-32) mmol/L Anion Gap 15.8 H (5.0-14.0) mmol/L BUN 7 (7-18) mg/dL Creatinine 0.7 (0.6-1.0) mg/dL Est Cr Clr Drug Dosing 128.23 mL/min Estimated GFR (MDRD) > 60 (>60) Glucose 119 H (74-106) mg/dL Calcium 8.2 L (8.5-10.1) mg/dL Total Bilirubin 0.4 D (0.2-1.0) mg/dL AST 14 L (15-37) U/L ALT 17 (12-78) U/L Alkaline Phosphatase 109 (46-116) U/L Total Protein 5.9 L (6.4-8.2) g/dL Albumin 2.0 L (3.4-5.0) g/dL Globulin 3.9 H (2.3-3.5) g/dL Albumin/Globulin Ratio 0.5 L (1.2-2.2) Urine Opiates Screen Negative (NEGATIVE) Ur Oxycodone Screen Negative (NEGATIVE) Urine Methadone Screen Negative (NEGATIVE) Ur Propoxyphene Screen Negative (NEGATIVE) Acetaminophen 0.0 L (10.0-30.0) ug/mL Ur Barbiturates Screen Negative (NEGATIVE) Ur Tricyclics Screen Negative (NEGATIVE) Ur Phencyclidine Scrn Negative (NEGATIVE) Ur Amphetamine Screen Negative (NEGATIVE) U Methamphetamines Scrn Negative (NEGATIVE) Urine MDMA Screen Negative (NEGATIVE) U Benzodiazepines Scrn Negative (NEGATIVE) U Cocaine Metab Screen Negative (NEGATIVE) U Marijuana (THC) Screen Presumptive positive H (NEGATIVE) SARS CoV-2 RNA Rapid [place] 02/16/21 Range/Units 08:37 WBC (4.5-11.0) K/uL RBC (3.30-5.50) M/uL Hgb (12.0-15.0) g/dL Hct (36.0-48.0) % MCV (80-98) fL MCH (27-31) pg MCHC (32-36) % Plt Count (150-400) K/uL Neut % (Auto) (36-66) % Lymph % (Auto) (24-44) % [place] % (Auto) (2-6) % Eos % (Auto) (2-4) % Baso % (Auto) (0-1) % Sodium (140-148) mmol/L Potassium (3.6-5.2) mmol/L Chloride (100-108) mmol/L Carbon Dioxide (21-32) mmol/L Anion Gap (5.0-14.0) mmol/L BUN (7-18) mg/dL Creatinine (0.6-1.0) mg/dL Est Cr Clr Drug Dosing mL/min Estimated GFR (MDRD) (>60) Glucose (74-106) mg/dL Calcium (8.5-10.1) mg/dL Total Bilirubin (0.2-1.0) mg/dL AST (15-37) U/L ALT (12-78) U/L Alkaline Phosphatase (46-116) U/L Total Protein (6.4-8.2) g/dL Albumin (3.4-5.0) g/dL Globulin (2.3-3.5) g/dL Albumin/Globulin Ratio (1.2-2.2) Urine Opiates Screen (NEGATIVE) Ur Oxycodone Screen (NEGATIVE) Urine Methadone Screen (NEGATIVE) Ur Propoxyphene Screen (NEGATIVE) Acetaminophen (10.0-30.0) ug/mL Ur Barbiturates Screen (NEGATIVE) Ur Tricyclics Screen (NEGATIVE) Ur Phencyclidine Scrn (NEGATIVE) Ur Amphetamine Screen (NEGATIVE) U Methamphetamines Scrn (NEGATIVE) Urine MDMA Screen (NEGATIVE) U Benzodiazepines Scrn (NEGATIVE) U Cocaine Metab Screen (NEGATIVE) U Marijuana (THC) Screen (NEGATIVE) SARS CoV-2 RNA Rapid [place] Negative Result Diagrams: 02/16/21 08:32 02/16/21 08:32 Sepsis Event Note - Evaluation Sepsis Screening Result: No Definite Risk - Focused Exam Vital Signs: Vital Signs Temp Pulse Resp BP Pulse Ox 02/16/21 09:51 101 H 18 102/57 L 98 02/16/21 08:40 98.1 F 105 H 16 94/46 L 97 02/16/21 08:24 98.1 F 105 H 17 117/79 97 - Problem List & Annotations (1) Normal intrauterine on ultrasound in second trimester SNOMED Code(s): 08527699, 39516507, 675245572 Code(s): Z34.92 - ENCNTR FOR SUPRVSN OF NORMAL PREG, UNSP, SECOND TRIMESTER Status: Acute Current Visit: Yes (2) Dehydration SNOMED Code(s): 43981777 Code(s): E86.0 - DEHYDRATION Status: Acute Current Visit: No (3) Dehydration during SNOMED Code(s): 58155674 Code(s): O26.899 - OTH RELATED CONDITIONS, UNSPECIFIED TRIMESTER; E86.0 - DEHYDRATION Status: Acute Current Visit: No - Problem List Review Problem List Initiated/Reviewed/Updated: Yes - Assessment Assessment:: 30 week IUP dehydration from nausea and vomiting. Pos THC - Plan Plan:: Home with Matt Keep appointment with Alesia on Thursday Drink plenty of water.
== END 2021-02-16 11:09 | disposition home or self-care (01) ==
LOC: JP.ED 08:17
DX: O21.2 Late vomiting of pregnancy (principal); O99.282 Endocrine, nutritional and metabolic diseases complicating pregnancy, second trimester; E86.0 Dehydration; Z3A.30 30 weeks gestation of pregnancy; Z20.822 Contact with and (suspected) exposure to COVID-19
CPT/HCPCS: 36415; 80053; 80143; 80305; 85025; 87635; 99284; J7030; U0002

== ENCOUNTER 2021-08-04 11:03 | Emergency (ER) | payer MEDICAID ==
[2021-08-04] MEDS ORDERED: Ketorolac 30 MG/ML SDV IM ONE (12:06)
[2021-08-04] MEDS ORDERED: Cyclobenzaprine 10 MG Tab PO ONE (12:06)
== END 2021-08-04 14:14 | disposition home or self-care (01) ==
LOC: JP.ED 11:03
DX: G56.03 Carpal tunnel syndrome, bilateral upper limbs (principal); E66.9 Obesity, unspecified; Z68.41 Body mass index [BMI] 40.0-44.9, adult
CPT/HCPCS: 72050; 96372; 99283; 99285; A9270; J1885

== ENCOUNTER 2021-08-22 14:32 | Emergency (ER) | payer MEDICAID | END 2021-08-22 15:50 | disposition home or self-care (01) | LOC: JP.ED 14:32 | DX: G56.03 Carpal tunnel syndrome, bilateral upper limbs (principal); M65.4 Radial styloid tenosynovitis [de Quervain]; F17.210 Nicotine dependence, cigarettes, uncomplicated | CPT/HCPCS: 99283 ==

== ENCOUNTER 2022-01-08 22:01 | Emergency (ER) | payer MEDICAID ==
[2022-01-08] MEDS ORDERED: diphenhydrAMINE 25 MG Cap PO ONE (22:16)
[2022-01-08] MEDS ORDERED: methylPREDNISolone Sodium Succinate 125 MG/2 ML SDV IM ONE (22:16)
== END 2022-01-08 22:42 | disposition home or self-care (01) ==
LOC: JP.ED 22:01
DX: S70.362A Insect bite (nonvenomous), left thigh, initial encounter (principal); E66.9 Obesity, unspecified; Z68.41 Body mass index [BMI] 40.0-44.9, adult; W57.XXXA Bitten or stung by nonvenomous insect and other nonvenomous arthropods, initial encounter
CPT/HCPCS: 96372; 99283; A9270; J2930

== ENCOUNTER 2023-01-09 08:12 | Emergency (ER) | payer MEDICAID ==
[2023-01-09 09:23] LABS: BASOPHILS ABSOLUTE AUTO 0.05 K/uL (0.00-0.10); BASOPHILS PERCENT AUTO 0.3 % (0.1-1.3); EOSINOPHILS ABSOLUTE AUTO 0.33 K/uL (0.00-0.40); EOSINOPHILS PERCENT AUTO 2.1 % (0.0-5.4); HEMATOCRIT 39.1 % (34.3-46.0); HEMOGLOBIN 12.4 g/dL (11.2-15.5); IMMATURE GRAN ABSOLUTE AUTO 0.06 K/uL (0.00-0.23); IMMATURE GRAN PERCENT AUTO 0.4 % (0.0-0.7); LYMPHOCYTES ABSOLUTE AUTO 1.98 K/uL (0.8-3.3); LYMPHOCYTES PERCENT AUTO 12.6 % (11.4-47.7); MEAN CORPUSCULAR HEMOGLOBIN 27.5 pg (31.6-35.5); MEAN CORPUSCULAR HGB CONC 31.7 g/dL (31.6-35.5); MEAN CORPUSCULAR VOLUME 86.7 fL (81.4-99.0); MONOCYTES ABSOLUTE AUTO 0.75 K/uL (0.20-0.90); MONOCYTES PERCENT AUTO 4.8 % (3.3-12.6); NEUTROPHILS ABSOLUTE AUTO 12.57 K/uL (1.0-7.6); NEUTROPHILS PERCENT AUTO 79.8 % (40.0-78.1); PLATELET COUNT,PLT 308 K/uL (130-375); RED BLOOD CELL COUNT 4.51 M/uL (3.77-5.24); WHITE BLOOD CELL COUNT,WBC 15.7 K/uL (3.2-11.0)
[2023-01-09 09:39] LABS: CALCIUM 8.3 mg/dL (8.5-10.1); CREATININE 0.9 mg/dL (0.6-1.0); EST CRCL DRUG DOSING (CG) 97.94 mL/min; POTASSIUM,K 4.1 mmol/L (3.6-5.2)
[2023-01-09 09:40] LABS: ANION GAP 9.1 mmol/L (5.0-14.0)
[2023-01-09 10:20] LABS: APPEARANCE,URINE SLIGHTLY CLOUDY (CLEAR); BILIRUBIN,URINE NEGATIVE (NEGATIVE); COLOR,URINE YELLOW (YELLOW); GLUCOSE,URINE NEGATIVE (NEGATIVE); KETONES,URINE NEGATIVE (NEGATIVE); LEUKOCYTE ESTERASE,URINE SMALL (NEGATIVE); NITRITE,URINE NEGATIVE (NEGATIVE); OCCULT BLOOD,URINE TRACE-INTACT (NEGATIVE); PROTEIN,URINE NEGATIVE (NEGATIVE); UROBILINOGEN,URINE 0.2 EU/dL (0.2-1.0)
[2023-01-09 10:25] LABS: AMORPHOUS SEDIMENT,URINE NOT SEEN; BACTERIA,URINE FEW; EPITHELIAL CELLS,URINE FEW; MUCUS,URINE NOT SEEN; RBC,URINE 0-5 (0-5); WBC,URINE 20-30 (0-5)
[2023-01-09] MEDS ORDERED: Iopamidol 612 MG/ML 100 ML Bottle IV PRN (11:22)
[2023-01-09] MEDS ORDERED: Sodium Chloride 0.9% 10 ML Syringe FLUSH PRN (11:22)
[2023-01-09] MEDS ORDERED: Sodium Chloride 0.9% 50 ML IV SCH (11:30)
== END 2023-01-09 13:48 | disposition home or self-care (01) ==
LOC: JP.ED 08:12
DX: N39.0 Urinary tract infection, site not specified (principal); E66.9 Obesity, unspecified; F17.210 Nicotine dependence, cigarettes, uncomplicated; Z68.42 Body mass index [BMI] 45.0-49.9, adult
CPT/HCPCS: 36415; 74177; 80048; 81001; 85025; 99285; J3490; Q9967

== ENCOUNTER 2023-01-30 21:47 | Emergency (ER) | payer MEDICAID ==
[2023-01-30] MEDS ORDERED: Proparacaine 0.5% Ophth Soln 15 ML Bottle EYERT ONE (22:31)
[2023-01-30] MEDS ORDERED: Fluorescein 1 MG Ophth Strip EYEBOTH ONE (22:31)
[2023-01-30] MEDS ORDERED: Erythromycin Base 0.5% Ophth Oint 1 GM Tube EYEBOTH ONE (22:34)
== END 2023-01-30 23:08 | disposition home or self-care (01) ==
LOC: JP.ED 21:47
DX: H16.001 Unspecified corneal ulcer, right eye (principal); H10.31 Unspecified acute conjunctivitis, right eye; E66.9 Obesity, unspecified; Z68.42 Body mass index [BMI] 45.0-49.9, adult; Z72.0 Tobacco use
CPT/HCPCS: 99283; A9270